=== PATIENT | male | born 1965 | race Caucasian/White ===

== ENCOUNTER 2021-05-01 18:14 | Emergency (ER) | payer OTHER, SELFPAY ==
[2021-05-01 18:53] VITALS: BP 146/74; PULSE 64; RESP 18; TEMP 36.4; O2SAT 97; BMI 26.2
[2021-05-01 20:38] VITALS: BP 166/90; PULSE 62; RESP 19; O2SAT 98
== END 2021-05-01 22:11 | disposition left against medical advice (07) ==
PROVIDERS: Emergency Provider Emergency Medicine; PCP Internal Medicine Geriatric Medicine
DX: H57.11 Ocular pain, right eye (principal)
CPT/HCPCS: 99281; 99283

== ENCOUNTER 2021-06-25 09:00 | Outpatient (REF) | payer OTHER, SELFPAY ==
--- NOTE | ~2021-06-25 | CT_ITS ---
EXAMINATION: CT CHEST SCREENING CLINICAL INFORMATION: Lung screening; 1 PPD x 43 yrs. F17.210 - Nicotine dependence, cigarettes, uncomplicated. COMPARISON: Chest radiographs 02/17/2016 TECHNIQUE: Multidetector volumetric CT imaging of the chest is performed without contrast using low dose technique. Additional 2D coronal and sagittal reformatted images and axial 3D maximum intensity projection (MIP) images are generated on the CT workstation. This CT examination was performed using dose optimization techniques as appropriate, variously including the following: *Automated exposure control *Adjustment of mA and/or kV according to patient size (this includes techniques or standardized protocols for targeted exams where dose is matched to indication/reason for exam; i.e. extremities or head) *Use of iterative reconstruction technique DLP: 57 mGy-cm FINDINGS: LUNGS: The lungs are clear and there is no airspace consolidation or groundglass opacity. No hyperinflation. The central airways are clear and there is no endobronchial lesion or bronchiectasis. Left lung has no nodule or mass. Right lung has no mass or significant nodule. Pleural-based nodule under 5 mm posterior upper zone (series 6/148) appears plaque like on sagittal and coronal reformatted images. There is a punctate pleural-based granuloma right posterior lateral apex under 4 mm (series 5/78). MEDIASTINUM: The mediastinum is normal. PLEURA: There is no pleural effusion. No pleural mass or thickening. AXILLA: No lymphadenopathy. UPPER ABDOMEN: Unremarkable OSSEOUS STRUCTURES: Unremarkable. CT/CT lung screening IMPRESSION: No significant pulmonary nodule. ASSESSMENT: Lung-RADS category 2: Benign RECOMMENDATION: Routine annual low-dose CT screening in 12 months.
== END 2021-06-25 09:01 | disposition home or self-care (01) ==
LOC: HO.CT 09:00
PROVIDERS: Visit Provider Physician Assistant Medical
DX: Z12.2 Encounter for screening for malignant neoplasm of respiratory organs (principal); F17.210 Nicotine dependence, cigarettes, uncomplicated
CPT/HCPCS: 71271

== ENCOUNTER → 2021-06-26 14:38 | Outpatient (BNVA) | payer OTHER, SELFPAY | PROVIDERS: PCP Internal Medicine Geriatric Medicine; Visit Provider Physician Assistant Medical | DX: F17.210 Nicotine dependence, cigarettes, uncomplicated (principal) | CPT/HCPCS: G0296 ==

== ENCOUNTER 2022-10-01 15:19 | Outpatient (REF) | payer OTHER, SELFPAY ==
--- NOTE | ~2022-10-01 | CT_ITS ---
EXAMINATION: CT CHEST SCREENING CLINICAL INFORMATION: Current smoker with 40 pack year history. COMPARISON: 06/25/2021 TECHNIQUE: Multidetector volumetric CT imaging of the chest is performed without contrast using low dose technique. Additional 2D coronal and sagittal reformatted images and axial 3D maximum intensity projection (MIP) images are generated on the CT workstation. This CT examination was performed using dose optimization techniques as appropriate, variously including the following: *Automated exposure control *Adjustment of mA and/or kV according to patient size (this includes techniques or standardized protocols for targeted exams where dose is matched to indication/reason for exam; i.e. extremities or head) *Use of iterative reconstruction technique DLP: 57 mGy-cm FINDINGS: LUNGS: Central airways are patent. Bronchial wall thickening is present bilaterally. No evidence of bronchiectasis. No confluent parenchymal disease is seen. Mild paraseptal and centrilobular emphysema is present. No suspicious lung nodules. No greater than 3 mm densities are identified. MEDIASTINUM: Visualized thyroid gland unremarkable. Heart normal size. No pericardial effusion. Coronary artery calcification is present. The ascending thoracic aorta measures up to 4.1 cm in diameter. No mediastinal or hilar lymphadenopathy appreciated. CORONARY ARTERY CALCIFICATION: Present. PLEURA: There is no pleural effusion. No pleural mass or thickening. AXILLA: No lymphadenopathy. UPPER ABDOMEN: Unremarkable. OSSEOUS STRUCTURES: No destructive bony lesions identified. CT/CT lung screening IMPRESSION: Mild changes of centrilobular and paraseptal emphysema. Bronchial wall thickening which may be related to respiratory bronchiolitis of smoking. No suspicious lung lesions. Prominent ascending thoracic aorta measuring up to 4.1 cm in diameter. ASSESSMENT: Lung-RADS category 1: Negative RECOMMENDATION: Routine annual low-dose CT screening in 12 months.
== END 2022-10-01 15:20 | disposition home or self-care (01) ==
LOC: HO.CT 15:19
PROVIDERS: PCP Internal Medicine Geriatric Medicine; Visit Provider Physician Assistant Medical
DX: Z12.2 Encounter for screening for malignant neoplasm of respiratory organs (principal); F17.210 Nicotine dependence, cigarettes, uncomplicated
CPT/HCPCS: 71271

== ENCOUNTER 2023-07-19 12:06 | Outpatient (REF) | payer OTHER, SELFPAY ==
--- NOTE | ~2023-07-19 | XR_ITS ---
EXAMINATION: XR ELBOW, LEFT CLINICAL INFORMATION: Lateral epicondylitis of left elbow. COMPARISON: 10/24/2014. TECHNIQUE: AP, lateral and 2 oblique views of the left elbow. FINDINGS: Alignment preserved. Bone mineralization is normal. Mild spurring along the coronoid process. Cortical deformity along the proximal diaphysis, radial aspect, of the olecranon is imaged due to overlying structures. XR/XR elbow LT min 3V IMPRESSION: 1. Mild spurring along the coronoid process. Cortical deformity along the radial aspect of the proximal diaphysis of the ulna is difficult to image due to overlying structures. Prior studies cannot be accessed at this time for interpretation. If prior studies are provided, an addendum will be dictated. Recommend follow-up imaging in 10-14 days if fracture is suspected. Direct correlation with prior images is recommended and if prior images are provided, an addendum will be dictated. In the absence of prior images, correlation with clinical exam, orthopedic consultation and possible additional imaging with CT scan recommended for further evaluation.
== END 2023-07-19 12:07 | disposition home or self-care (01) ==
LOC: HO.HHCX 12:06
PROVIDERS: Visit Provider Internal Medicine Geriatric Medicine
DX: M77.12 Lateral epicondylitis, left elbow (principal)
CPT/HCPCS: 73080

== ENCOUNTER 2023-08-19 07:40 | Outpatient (REF) | payer OTHER, SELFPAY ==
--- NOTE | ~2023-08-19 | CT_ITS ---
EXAMINATION: CT ELBOW WITHOUT CONTRAST, LEFT CLINICAL INFORMATION: Lateral epicondylitis. COMPARISON: Most recent left elbow radiographs dated 07/19/2023. TECHNIQUE: Contiguous axial CT images of the left elbow were obtained without contrast. Multiplanar reformats were provided and reviewed. This CT examination was performed using dose optimization techniques as appropriate, variously including the following: *Automated exposure control *Adjustment of mA and/or kV according to patient size (this includes techniques or standardized protocols for targeted exams where dose is matched to indication/reason for exam; i.e. extremities or head) *Use of iterative reconstruction technique. DOSE: 113 mGy-cm FINDINGS: No acute fracture or dislocation. Tiny degenerative spur along the anterior aspect of the coronoid process as seen on the prior radiographs. Along the lateral cortex of the proximal ulnar metaphysis in the region of the interosseous ligament, there is mild focal cortical irregularity with a somewhat linear lucency along the periphery of the cortex. Findings could represent mild degenerative spurring versus sequela of a remote injury versus a vascular channel. No acute fracture or concerning lytic/blastic osseous lesion in this region. No abnormal soft tissue mass or fluid collection. No significant joint effusion. Subcutaneous edema and stranding dorsal to the olecranon which could represent a soft tissue contusion versus early olecranon bursitis. No large, organized fluid collection; however, evaluation is somewhat limited without IV contrast. The visualized muscles and tendons are grossly intact; however, evaluation is limited on CT examination. CT/CT elbow LT wo IV con IMPRESSION: 1. No acute fracture or dislocation. Tiny degenerative spur along the anterior aspect of the coronoid process as seen on the prior radiographs. 2. Along the lateral cortex of the proximal ulnar metaphysis in the region of the interosseous ligament, there is mild focal cortical irregularity with a somewhat linear lucency along the periphery of the cortex. Findings could represent mild degenerative spurring versus sequela of a remote injury versus a vascular channel. No acute fracture or concerning lytic/blastic osseous lesion in this region. 3. Subcutaneous edema and stranding dorsal to the olecranon which could represent a soft tissue contusion versus early olecranon bursitis. No large, organized fluid collection; however, evaluation is somewhat limited without IV contrast.
== END 2023-08-19 07:41 | disposition home or self-care (01) ==
LOC: HO.CT 07:40
PROVIDERS: Visit Provider Internal Medicine Geriatric Medicine
DX: M77.12 Lateral epicondylitis, left elbow (principal); R93.6 Abnormal findings on diagnostic imaging of limbs
CPT/HCPCS: 73200

== ENCOUNTER 2023-10-19 15:48 | Outpatient (REF) | payer OTHER, SELFPAY ==
--- NOTE | ~2023-10-19 | CT_ITS ---
EXAMINATION: CT CHEST SCREENING CLINICAL INFORMATION: 41 years of smoking. Current smoker 1 pack per day. COMPARISON: None available. TECHNIQUE: Multidetector volumetric CT imaging of the chest is performed without contrast using low dose technique. Additional 2D coronal and sagittal reformatted images and axial 3D maximum intensity projection (MIP) images are generated on the CT workstation. This CT examination was performed using dose optimization techniques as appropriate, variously including the following: *Automated exposure control *Adjustment of mA and/or kV according to patient size (this includes techniques or standardized protocols for targeted exams where dose is matched to indication/reason for exam; i.e. extremities or head) *Use of iterative reconstruction technique DLP: 55 mGy-cm FINDINGS: LUNGS: The lungs are well-expanded and clear of acute pneumonic process. There are no pulmonary nodules, mass or consolidation. There is nonspecific ground-glass opacity seen right lower lobe anterior segment adjacent to the major fissure on axial image 33/4, on sagittal view it measures 1 cm, image 89/8. MEDIASTINUM: Thyroid lobes are symmetric and normal. The central trachea and bronchi are widely patent. Heart size and the great vessels are normal caliber. No pericardial effusion seen. Thyroid lobes are symmetric and normal. No pericardial effusion seen. CORONARY ARTERY CALCIFICATION: Mild coronary artery calcifications present. PLEURA: There is no pleural effusion. No pleural mass or thickening. AXILLA: No abnormal size axillary lymph nodes seen. The chest wall is unremarkable. UPPER ABDOMEN: Visualized liver, spleen and pancreas appear unremarkable. OSSEOUS STRUCTURES: No aggressive lytic or sclerotic process seen. CT/CT lung screening IMPRESSION: Nonspecific 1 cm ground-glass opacity right lower lobe. ASSESSMENT: Lung-RADS category 2: Benign
== END 2023-10-19 15:49 | disposition home or self-care (01) ==
LOC: HO.CT 15:48
PROVIDERS: PCP Internal Medicine Geriatric Medicine; Visit Provider Nurse Practitioner Family
DX: Z12.2 Encounter for screening for malignant neoplasm of respiratory organs (principal); F17.210 Nicotine dependence, cigarettes, uncomplicated
CPT/HCPCS: 71271

== ENCOUNTER 2023-11-22 12:44 | Outpatient (REF) | payer OTHER, SELFPAY ==
--- NOTE | ~2023-11-22 | XR_ITS ---
EXAMINATION: XR ELBOW, RIGHT CLINICAL INFORMATION: Right elbow COMPARISON: Chronic medial right elbow pain TECHNIQUE: AP, lateral, and oblique views of the right elbow. FINDINGS: BONES: Bony structures are intact. There is no focal bone destruction or periosteal reaction seen. JOINTS: Alignment of joints is normal. SOFT TISSUE: Soft tissue is normal. No radiopaque foreign body or abnormal air collection is seen. XR/XR elbow RT min 3V IMPRESSION: 1. Normal x-rays of right elbow. No fracture or dislocation or signs of osteomyelitis are found.
== END 2023-11-22 12:45 | disposition home or self-care (01) ==
LOC: HO.HHCX 12:44
PROVIDERS: Visit Provider Internal Medicine Geriatric Medicine
DX: M77.01 Medial epicondylitis, right elbow (principal)
CPT/HCPCS: 73080

== ENCOUNTER 2023-12-01 08:45 | Outpatient (REF) | payer OTHER, SELFPAY ==
[2023-12-01 11:50] LABS: Alanine Aminotransferase 25 U/L (0-40); Albumin Level 4.1 g/dL (3.5-5.0); Alkaline Phosphatase 80 U/L (39-117); Anion Gap 12 (12-20); Aspartate Amino Transferase 18 U/L (5-37); Bilirubin Total 0.4 mg/dL (0.0-1.0); Blood Urea Nitrogen 11 mg/dL (9-16); Calcium 9.4 mg/dL (8.4-10.2); Carbon Dioxide 28 mmol/L (22-29); Chloride 104 mmol/L (96-108); Cholesterol 205 mg/dL (<200); Estimated Glomerular Filt Rate > 60; Glucose Random 137 mg/dL (60-115); HDL Cholesterol 37 mg/dL (>40); LDL Cholesterol Calculated 136 mg/dL (<100); Potassium 4.2 mmol/L (3.3-5.1); Sodium 140 mmol/L (135-145); Total Protein 7.2 g/dL (6.5-8.0); Triglycerides 164 mg/dL (<150)
[2023-12-01 11:57] LABS: Creatinine Urine 226.03 mg/dL; Microalbum/Creatinine Ratio Ur 3.5 ug/mg cr (<30)
== END 2023-12-01 08:46 | disposition home or self-care (01) ==
LOC: HO.HHCL 08:45
PROVIDERS: Visit Provider Internal Medicine Geriatric Medicine
DX: E11.9 Type 2 diabetes mellitus without complications (principal)
CPT/HCPCS: 36415; 80053; 80061; 82043; 82570

== ENCOUNTER 2024-12-05 08:47 | Outpatient (REF) | payer OTHER, SELFPAY ==
--- OUTSIDE RECORDS SUMMARY | 2024-12-05 09:22 | XMS_ITS | Clinical Summary ---
Author Organization [employer] Address [address] [place] [address] [address] [place] [address] Care Team Providers Care Billet Heater Name Role Phone Name, Stanford LEE Primary Care Provider [phone] Allergies Active Allergy Reactions Criticality Noted Date Comments Statins 11/17/2022 Medications zoster vaccine-recombi nant adjuvanted (Shingrix) 50 MCG/0.5ML vaccine Inject 0.5 mL into the shoulder, thigh, or buttocks. 1 Active Blood Glucose Monitoring Suppl (FreeStyle Lite) w/Device kitIndications: Type 2 diabetes mellitus without complication, without long-term current use of insulin (CMS/HCC),Essen tial hypertension,To bacco use 1 kit in the morning. 1 kit 3 Active metFORMIN (Glucophage) 500 MG tablet Take 1 tablet (500 mg) by mouth with breakfast and with evening meal. 180 tablet 2 4 06/21/20 25 Active FreeStyle lancetsIndicati ons:Type 2 diabetes mellitus without complication, without long-term current use of insulin (CMS/HCC) 1 each by Other route Once per day. 100 each 3 4 Active FREESTYLE LITE test strip Use to test blood sugar 1 times daily 100 each 3 4 06/21/20 25 Active Active Problems Problem Noted Date Diagnosed Date Type 2 diabetes mellitus 11/17/2022 Hypercholesterolemia 11/17/2022 Essential hypertension 11/17/2022 Statin intolerance 11/17/2022 Tobacco use 11/17/2022 Resolved Problems Problem Noted Date Diagnosed Date Resolved Date Reduced libido 11/17/2022 06/01/2023 Encounters Date Type Department Care Team Description 09/28/[address] [facility] [address] [facility] [place] [address] Balbina Keys MA returning pt call 09/19/[address] [facility] [address] [place] [address] Stanford Em MD Appointment Request from Last 3 Months Immunizations Name Administration Dates Next Due Tdap 04/27/2021 Social History Tobacco Use Types Packs/Day Years Used Date Smoking Tobacco: Every Day Cigarettes Smokeless Tobacco: Never Tobacco Cessation:Ready to Q uit: Not Asked; Counseling Given: Not Answered Alcohol Use Standard Drinks/Week Comments Yes 0 (1 standard drink = 0.6 oz pur e alcohol) occassionally Alcohol Answer Date Recorded Frequency of Alcohol Consumption Not on file 02/28/2024 Average Number of Drinks Not on file 024 Frequency of Binge Drinking Not on file 02/04 Score 0 02/28/2024 Depression Answer Date Recorded Patient Health Questionnaire-9 Score 0 11/22/2023 Patient Health Questionnaire-9 Score 0 11/22/2023 Last PHQ-9: Questionnaire Data Not on file 0 11/22/2023 Housing Stability Answer Date Recorded What is your housing situation today? I have anthony penn 02/28/[address] you li ve. Do you have problems with any of the following? None of the above 02/28/2024 Food Insecurity Answer Date Recorded Within the past 12 months, y ou worried that your food would run out before you got money to buy more: Never True 02/28/2024 Within the past 12 months,th e food you bought just didn't last and you didn't have enough money to get more: Never True Transportation Answer Date Recorded In the past 12 months, has l ack of transportation kept you from medical appts, meetings, work or from getting things needed for daily living? No 02/28/2024 Utilities Answer Date Recorded In the past 12 months, has t he electric, gas, oil or water company threatened to shut off services in your home? No 02/28/2024 Depression Answer Date Recorded Patient Health Questionnaire-2 Score 0 11/22/2023 Internet Access Answer Date Recorded Internet Access Q1 No 05/07/2024 Internet Access Q2 I do not want or need it 10/2023 Sex and Gender Information Value Date Recorded Sex Assigned at Male 07/05/2022 10:38 AM EDT Legal Sex Male 10:38 AM EDT Gender Identity Male 07/05/2022 10:38 AM EDT Sexual Orientation Straight 07/05/2022 10 :38 AM EDT Last Filed Vital Signs Vital Sign Reading Time Taken Comments Blood Pressure 139/79 06/21/2024 11:31 AM EDT Pulse 50 06/21/2024 11:26 AM EDT Temperature 36.2 ??C (97.1 ??F) 02/28/2024 11:13 AM E DT Respiratory Rate 18 06/21/2024 11:26 AM EDT Oxygen Saturation 98% 06/21/2024 11:26 AM EDT Inhaled Oxygen Concentration - - Weight 83.9 kg (185 lb) 06/21/2024 11:26 AM EDT Height 180.3 cm (5' 11 ) 06/21/2024 11:26 AM EDT Body Mass Index 25.8 06/21/2024 11:26 AM EDT Plan of Treatment Upcoming Encounters Date Type Department Care Team (Late st Contact Info) Description 12/06/2024 9:45 AM EDT Office Visit [facility] [address] [place] [address] Name, MD Stanford [address] [place] [address] Health Maintenance Due Date Last Done Comments CT Colonography 1963 Colonoscopy 1963 Colorectal Cancer Screening 1963 FIT DNA/Cologuard 1963 FIT 1963 FOBT 1963 HIV Screening 1963 Sigmoidoscopy 1963 Hepatitis C Screening 1981 Pneumococcal Vaccine: 50+ Years (1 of 2 - PCV) 1982 Zoster Vaccines (1 of 2) 2013 COVID-19 Vaccine ( season) 2024 09/10/2021, 03/10/2021, 02/10/2021 Influenza Vaccine (#1) 2024 Diabetes: Hemoglobin A1C 09/21/2024 024, 02/28/2024, 11/22/2023, Additional history exists Depression Screening 11/21/2024 11/22/2023, 11/22/19 24 Diabetes: Urine Protein Screening 11/30/2024 12/01/2023, 02/16/2023 Lipid Panel 11/30/2024 12/01/2023, 02/03, 05/19/2022, Additional history exists Alcohol/Substance Use Screening 02/27/2025 02/28/2024 SDOH Screening 02/27/2025 02/28/2024 Eye Exam 06/14/2025 06/14/2023, 06/05, 06/14/2023, Additional history exists Diabetes: Foot Exam 06/21/2025 06/21/2024, 06/21/2024, 06/21/2024, Additional history exists Tobacco Screening 06/21/2025 06/21/2024 DTaP/Tdap/Td Vaccines (2 - Td or Tdap) 04/27/2031 04/27/2021 RSV Patients and Patients Aged 60 years or older (1 - 1-dose 75+ series) 2038 HIB Vaccines Aged Out No longer eligi ble based on patient's age to complete this topic HPV Vaccines Aged Out No longer eligi ble based on patient's age to complete this topic Hepatitis A Vaccines Aged Out No long er eligible based on patient's age to complete this topic Hepatitis B Vaccines Aged Out No long er eligible based on patient's age to complete this topic IPV Vaccines Aged Out No longer eligi ble based on patient's age to complete this topic Meningococcal Vaccine Aged Out No carolee henry eligible based on patient's age to complete this topic RSV under 20 months Aged Out No longe r eligible based on patient's age to complete this topic Rotavirus Vaccines Aged Out No longer eligible based on patient's age to complete this topic Procedures Procedure Name Priority Date/Time Associated Diagnosis Comments POCT GLYCATED HEMOGLOBIN, TOTAL Routine 06/21/2024 11:27 AM EDT Type 2 diabetes mellitus without complication, without long-term current use of insulin ([facility]) ALBUMIN, RANDOM URINE W/CREATININE Routine 12/01/2023 8:49 AM EDT Type 2 diabetes mellitus without complication, without long-term current use of insulin ([facility]) LIPID PANEL, STANDARD Routine 12/01/2023 8:49 AM EDT Type 2 diabetes mellitus without complication, without long-term current use of insulin ([facility]) from Last 3 Months or Most Recently Relevant to Health Maintenance Results * (ABNORMAL) POCT HGB A1C (06/21/2024 11:27 AM EDT) Hemoglobin A1C 7.1(A) 4.0 - 6.0 % QC Media Lot # [id number] Lot# Expiration Date ,996 Blood 06/21/2024 11:2 7 AM EDT us Stanford Em MD POINT OF CARE TEST ENTER/EDIT OR DERABLES Final Result * Albumin, Random Urine W/Creatinine (12/01/2023 8:49 AM EDT) Creatinine, Urine 226.03 mg/dL [facility] Microalbumin Urine 8.0 mg/L [facility] Microalbum Creatinine Ratio Ur 3.5 <30 ug/mg cr [facility] Comment:Albumin/Creatinine R atio Reference Ranges: Normal: < 30 ug/mg creatinine Microalbuminuria: 30 - 300 ug/mg creatinineClinical Albuminuria: > 300 ug/mg creatinine Urine (Urine, Random) 12/01/2023 8:49 AM EDT 12/01/2023 11:17 AM EDT us Stanford Em MD LAB URINE ORDERABLES Final Resul t [facility] [address] [place] [phone] * (ABNORMAL) Lipid Panel, Standard (12/01/2023 8:49 AM EDT) Triglycerides 164(H) <150 mg/dL [facility] Comment:Desirable Triglyceri de: less than 150 mg/dLBorderline High Triglyceride 150-199 mg/dLHigh Triglyceride: 200-499 mg/dLVery High Triglyceride: greater than or equal to 5OO mg/dL Cholesterol 205(H) <200 mg/dL [facility] Comment:Desirable Cholestero l: less than 200 mg/dLBorderline High Cholesterol: 200-239 mg/dLHigh Cholesterol: greater than 239 mg/dL LDL Cholesterol Calculated 136(H) <100 mg/dL [facility] Comment:Desirable LDL: less than 100 mg/dLNear Optimal/Above Optimal LDL: 110- 129 mg/dLBorderline High LDL: 130-159 mg/dLHigh LDL: 160-189 mg/dLVery High LDL: greater than or equal to 190 mg/dL HDL Cholesterol 37(L) >40 mg/dL [facility] Comment:Desirable HDL: great er than 40 mg/dL Note: This HDL assay may give artificially low results in patients with liver disease. Blood Venous blood specimen / Unknown 12/01/2023 8:49 AM EDT 12/01/2023 11:17 AM EDT us Stanford Name LAB BLOOD ORDERABLES Final Resul t [facility] [address] [place] [address] [phone] from Last 3 Months or Most Recently Relevant to Health Maintenance Insurance [facility] [place] [address] Care Teams Billet Heater Relationship Specialty Start Date End Date Name, MD Stanford [address] [place] [id number] PCP - General Family Medicine 03/17/21
--- OUTSIDE RECORDS SUMMARY | 2024-12-05 09:22 | XMS_ITS | Encounter Summary ---
Author Organization [employer] Address [address] [facility] 7 [place] [address] Care Team Providers Care Kiln Mechanic Name Role Phone Name, Stanford LEE Primary Care Provider [phone] Reason for Visit * Reason Onset Date Comments Appointment Request 09/19/2024 Encounter Details Date Type Department Care Team ([facility] Contact Info) Description 09/19/2024 Telephone [facility] [address] [place], [place] [phone] Name, MD Stanford [address] [place] [address] Appointment Request Social History Tobacco Use Types Packs/Day Years Used Date Smoking Tobacco: Every Day Cigarettes Smokeless Tobacco: Never Alcohol Use Standard Drinks/Week Comments Yes 0 [...] Orientation Straight 07/05/2022 10 :38 AM EDT documented as of this encounter Miscellaneous Notes * Telephone Encounter - Kaelyn Banks - 09/19/2024 8:57 AM EST Tc from pt requesting schedule diabetes f/u appt. PAR tried to schedule but there's no availability. (September recall) Contact pt [phone] documented in this encounter Plan of Treatment Upcoming Encounters Date Type Department Care Team (Late st Contact Info) Description 12/06/2024 9:45 AM EDT Office Visit [facility] [address] [place], [place] [phone] Name, MD Stanford [address] [place] [address] documented as of this encounter Visit Diagnoses Not on filedocumented in this encounter Additional Health Concerns Assessment Noted Time PHQ-9 Depression Total Score: 0 11/22/19 24 11:01 AM EDT documented as of this encounter Care Teams Kiln Mechanic Relationship Specialty Start Date End Date Name, MD Stanford [address] [place] [address] PCP - General Family Medicine 03/17/21 documented as of this encounter
[2024-12-05 14:30] LABS: Anion Gap 13 (12-20); Blood Urea Nitrogen 13 mg/dL (9-16); Calcium 9.6 mg/dL (8.4-10.2); Carbon Dioxide 26 mmol/L (22-29); Chloride 107 mmol/L (96-108); Estimated Glomerular Filt Rate > 60; Glucose Random 135 mg/dL (60-115); Potassium 4.5 mmol/L (3.3-5.1); Sodium 141 mmol/L (135-145)
[2024-12-05 14:46] LABS: Creatinine Urine 312.29 mg/dL; Microalbum/Creatinine Ratio Ur 3.8 ug/mg cr (<30)
[2024-12-05 15:00] LABS: Vitamin B12 353 pg/mL (200-900)
== END 2024-12-05 08:48 | disposition home or self-care (01) ==
LOC: HO.CHCLDS 08:47
PROVIDERS: Visit Provider Internal Medicine Geriatric Medicine
DX: E11.9 Type 2 diabetes mellitus without complications (principal); Z72.0 Tobacco use; Z28.21 Immunization not carried out because of patient refusal; Z53.20 Procedure and treatment not carried out because of patient's decision for unspecified reasons
CPT/HCPCS: 36415; 80048; 82043; 82570; 82607

== ENCOUNTER 2025-06-10 08:26 | Outpatient (REF) | payer OTHER, SELFPAY ==
--- OUTSIDE RECORDS SUMMARY | 2025-06-10 08:55 | XMS_ITS | Clinical Summary ---
Author Organization [employer] Address [address] [facility] 7t [place] [address] Care Team Providers Care Commercial Escrow Assistant Name Role Phone Name, Stanford LEE Primary Care Provider [phone] Allergies Active Allergy Reactions Criticality Noted Date Comments Statins 11/17/2022 Medications zoster vaccine-recombi nant adjuvanted (Shingrix) 50 MCG/0.5ML vaccine Inject 0.5 mL into the shoulder, thigh, or buttocks. 1 Active Blood Glucose Monitoring Suppl (FreeStyle Lite) w/Device kitIndications: Type 2 diabetes mellitus without complication, without long-term current use of insulin (HCC),Essential hypertension,To bacco use 1 kit in the morning. 1 kit 3 Active FreeStyle lancetsIndicati ons:Type 2 diabetes mellitus without complication, without long-term current use of insulin (HCC) 1 each by Other route Once per day. 100 each 3 4 Active FREESTYLE LITE test strip Use to test blood sugar 1 times daily 100 each 3 4 06/21/20 25 Active metFORMIN (Glucophage) 500 MG tablet TAKE 1 TABLET WITH BREAKFAST AND EVENING MEAL 180 tablet 3 5 Active Active Problems Problem Noted Date Diagnosed Date Type 2 diabetes mellitus 11/17/2022 Hypercholesterolemia 11/17/2022 Essential hypertension 11/17/2022 Statin intolerance 11/17/2022 Tobacco use 11/17/2022 Resolved Problems Problem Noted Date Diagnosed Date Resolved Date Reduced libido 11/17/2022 06/01/2023 Encounters Date Type Department Care Team Description 04/25/2025 10:30 AM EDT Office Visit [facility] [address] [place] [address] NameStanford MD Type 2 diabetes mellitus without complication, without long-term current use of insulin ([facility]) (Primary Dx); Tobacco use 04/25/2025 Travel 04/24/2025 Telephone [facility] [address] [place] [address] Name, MD Stanford Chart Prep 04/19/2025 Travel from Last 3 Months Immunizations Immunization Administration Dates Next Due Tdap 04/27/2021 Social [...] Date Recorded Patient Health Questionnaire-9 Score 0 12/06/2024 Patient Health Questionnaire-9 Score 0 12/06/2024 Last PHQ-9: Questionnaire Data Not on file 0 12/06/2024 Housing Stability Answer Date Recorded What is your housing situation today? I have anthony penn 04/25/[address] you li ve. Do you have problems with any of the following? None of the above 04/25/2025 Food Insecurity Answer Date Recorded Within the past 12 months, y ou worried that your food would run out before you got money to buy more: Never True 04/25/2025 Within the past 12 months,th e food you bought just didn't last and you didn't have enough money to get more: Never True Transportation Answer Date Recorded In the past 12 months, has l ack of transportation kept you from medical appts, meetings, work or from getting things needed for daily living? No 04/25/2025 Utilities Answer Date Recorded In the past 12 months, has t he electric, gas, oil or water company threatened to shut off services in your home? No 04/25/2025 Depression Answer Date Recorded Patient Health Questionnaire-2 Score 0 12/06/2024 Internet Access Answer Date Recorded Internet Access Q1 Yes 04/25/2025 Internet Access Q2 Not on file 04/25/2025 Sex and Gender Information Value Date Recorded Sex Assigned at Male 07/05/2022 10:38 AM EDT Legal Sex Male 10:38 AM EDT Gender Identity Male 07/05/2022 10:38 AM EDT Sexual Orientation Straight 07/05/2022 10 :38 AM EDT Last Filed Vital Signs Vital Sign Reading Time Taken Comments Blood Pressure 136/72 04/25/2025 10:42 AM EDT Pulse 72 04/25/2025 10:42 AM EDT Temperature 36.7 C (98.1 F) 04/25/2025 10:42 AM EDT Respiratory Rate 18 04/25/2025 10:42 AM EDT Oxygen Saturation 98% 04/25/2025 10:42 AM EDT Inhaled Oxygen Concentration - - Weight 82.2 kg (181 lb 3.2 oz) 04/25/2025 10:42 AM EDT Height 180.3 cm (5' 11 ) 04/25/2025 10:42 AM EDT Body Mass Index 25.27 04/25/2025 10:42 AM EDT Plan of Treatment Health Maintenance Due Date Last Done Comments CT Colonography 1963 Colonoscopy 1963 Colorectal Cancer Screening 1963 FIT DNA/Cologuard 1963 FIT 1963 FOBT 1963 HIV Screening 1963 Sigmoidoscopy 1963 Hepatitis C Screening 1981 Pneumococcal Vaccine: 50+ Years (1 of 2 - PCV) 1982 Zoster Vaccines (1 of 2) 2013 Lipid Panel 11/30/2024 12/01/2023, 02/03, 05/19/2022, Additional history exists COVID-19 Vaccine ( season) 2025 09/10/2021, 03/10/2021, 02/10/2021 Influenza Vaccine (#1) 2025 Eye Exam 06/14/2025 06/14/2023, 06/05, 06/14/2023, Additional history exists Diabetes: Foot Exam 06/21/2025 06/21/2024, 06/21/2024, 06/21/2024, Additional history exists Diabetes: Hemoglobin A1C 07/26/2025 025, 12/06/2024, 06/21/2024, Additional history exists Diabetes: Urine Protein Screening 12/05/2025 12/05/2024, 12/01/2023, 02/16/2023 Alcohol/Substance Use Screening 12/06/2025 12/06/2024 Depression Screening 12/06/2025 12/06/2024, 12/07/19 25 Disability Screening 04/25/2026 04/25/2025 SDOH Screening 04/25/2026 04/25/2025 Tobacco Screening 04/25/2026 04/25/2025 DTaP/Tdap/Td Vaccines (2 - Td or Tdap) [...] patient's age to complete this topic Meningococcal B Vaccine Aged Out No l onger eligible based on patient's age to complete [...] Diagnosis Comments POCT GLYCATED HEMOGLOBIN, TOTAL Routine 04/25/2025 10:43 AM EDT Type 2 diabetes mellitus without complication, without long-term current use of insulin ([facility]) POCT GLUCOSE Routine 04/25/2025 10:43 AM EDT Type 2 diabetes mellitus without complication, without long-term current use of insulin ([facility]) ALBUMIN, RANDOM URINE W/CREATININE Routine 12/05/2024 8:58 AM EDT Type 2 diabetes mellitus without complication, without long-term current use of insulin ([facility]) Tobacco use Vaccination refused by patient Colonoscopy refused LIPID PANEL, STANDARD Routine 12/01/2023 8:49 AM EDT Type 2 diabetes mellitus without complication, without long-term current use of insulin ([facility]) from Last 3 Months or Most Recently Relevant to Health Maintenance Results * (ABNORMAL) POCT HGB A1C (04/25/2025 10:43 AM EDT) Hemoglobin A1C 7.3(A) 4.0 - 5.7 % QC Media Lot # [id number] Lot# Expiration Date Blood 04/25/2025 10:4 3 AM EDT us Stanford Em MD POINT OF CARE TEST ENTER/EDIT OR DERABLES Final Result * (ABNORMAL) POCT Glucose (04/25/2025 10:43 AM EDT) Glucose Blood, POC 202(A) 60 - 200 mg/dL QC Media Lot # [id number] Lot# Expiration Date Blood Capillary blood specimen / Unknown 04/25/2025 10:43 AM EDT us Stanford Em MD POINT OF CARE TEST ENTER/EDIT OR DERABLES Final Result * Albumin, Random Urine W/Creatinine (12/05/2024 8:58 AM EDT) Creatinine, Urine 312.29 mg/dL [facility] Microalbumin Urine 12.0 mg/L [facility] Microalbum Creatinine Ratio Ur 3.8 <30 ug/mg cr [facility] Comment:Albumin/Creatinine R atio Reference Ranges: Normal: < 30 ug/mg creatinine Microalbuminuria: 30 - 300 ug/mg creatinineClinical Albuminuria: > 300 ug/mg creatinine Urine (Urine, Random) 12/05/2024 8:58 AM EDT 12/05/2024 2:05 PM EDT Stanford Em MD LAB URINE ORDERABLES Final Resul t Performing Organization Address [facility] de Phone Number [facility] [address] [place] [address] [phone] * (ABNORMAL) Lipid Panel, Standard (12/01/2023 8:49 AM EDT) Triglycerides 164(H) <150 mg/dL [facility] Comment:Desirable Triglyceri de: less than 150 mg/dLBorderline High Triglyceride 150-199 mg/dLHigh Triglyceride: 200-499 mg/dLVery High Triglyceride: greater than or equal to 5OO mg/dL Cholesterol 205(H) <200 mg/dL [facility] Comment:Desirable Cholestero l: less than 200 mg/dLBorderline High Cholesterol: 200-239 mg/dLHigh Cholesterol: greater than 239 mg/dL LDL Cholesterol Calculated 136(H) <100 mg/dL [facility] Comment:Desirable LDL: less than 100 mg/dLNear Optimal/Above Optimal LDL: 110- 129 mg/dLBorderline High LDL: 130-159 mg/dLHigh LDL: 160-189 mg/dLVery High LDL: greater than or equal to 190 mg/dL HDL Cholesterol 37(L) >40 mg/dL [facility] Comment:Desirable HDL: great er than 40 mg/dL Note: This HDL assay may give artificially low results in patients with liver disease. Blood Venous blood specimen / Unknown 12/01/2023 8:49 AM EDT 12/01/2023 11:17 AM EDT us Stanford Em MD LAB BLOOD ORDERABLES Final Resul t Performing Organization Address [facility] Co de Phone Number [facility] [address] [place] [phone] from Last 3 Months or Most Recently Relevant to Health Maintenance Insurance [employer] OPEN ACCESS Care Teams Commercial Escrow Assistant Relationship Specialty Start Date End Date Name, MD Stanford [address] [place] [phone] PCP - General Family Medicine 03/17/21
--- OUTSIDE RECORDS SUMMARY | 2025-06-10 08:55 | XMS_ITS | Encounter Summary ---
Author Organization [employer] Address [address] [facility] 7 [place] [address] Care Team Providers Care Caretaker Grounds Name Role Phone Name, Stanford LEE Primary Care Provider [phone] Reason for Visit * Reason Onset Date Comments Appointment Request 09/19/2024 Encounter Details Date Type Department Care Team ([facility] Contact Info) Description 09/19/2024 Telephone [facility] MEDICINE [address] [place], [place] [phone] Name, MD Stanford [address] [place] [address] Appointment Request Social History Tobacco Use Types [...] there's no availability. (September recall) Contact pt [phone] documented in this encounter Plan of Treatment Not on file documented as of this encounter Visit Diagnoses Not on filedocumented in this encounter Additional Health Concerns Assessment Noted Time PHQ-9 Depression Total Score: 0 11/22/19 24 11:01 AM EDT documented as of this encounter Care Teams Caretaker Grounds Relationship Specialty Start Date End Date Name, MD Stanford [address] [place] [address] PCP - General Family Medicine 03/17/21 documented as of this encounter
[2025-06-10 15:02] LABS: Alanine Aminotransferase 21 U/L (0-40); Albumin Level 4.5 g/dL (3.5-5.0); Alkaline Phosphatase 71 U/L (39-117); Anion Gap 10 (12-20); Aspartate Amino Transferase 27 U/L (5-37); Blood Urea Nitrogen 12 mg/dL (9-16); Calcium 9.2 mg/dL (8.4-10.2); Carbon Dioxide 27 mmol/L (22-29); Chloride 105 mmol/L (96-108); Cholesterol 222 mg/dL (<200); Estimated Glomerular Filt Rate > 60; HDL Cholesterol 35 mg/dL (>40); Potassium 4.0 mmol/L (3.3-5.1); Sodium 138 mmol/L (135-145); Total Protein 7.0 g/dL (6.5-8.0); Triglycerides 120 mg/dL (<150)
== END 2025-06-10 08:27 | disposition home or self-care (01) ==
LOC: HO.CHCLDS 08:26
PROVIDERS: Visit Provider Internal Medicine Geriatric Medicine
DX: E11.9 Type 2 diabetes mellitus without complications (principal)
CPT/HCPCS: 36415; 80053; 80061

== ENCOUNTER 2025-07-04 07:39 | Outpatient (REF) | payer OTHER, SELFPAY ==
--- NOTE | ~2025-07-04 | CT_ITS ---
EXAMINATION: CT LUNG SCREENING HISTORY: F17.210 - Nicotine dependence, cigarettes, uncomplicated TECHNIQUE: Low dose axial images were obtained from the sternal notch to upper abdomen without IV contrast per standard departmental protocol. Sagittal and coronal reformatted images were also obtained and reviewed. One or more of the following techniques was used for dose reduction: Automated exposure control, adjustment of the mA and/or kV according to patient size, use of iterative reconstruction technique. DLP: 60 mGy-cm COMPARISON: Comparison is made with the prior examination dated 10/19/2023. FINDINGS: Lung nodules: There is a 4 mm subpleural nodule in the right upper lobe without change (series 4, image 31). No new pulmonary nodules are identified. Emphysema: mild Coronary Calcification: mild Aortic Arch Calcification: mild Potentially Significant Incidentals : none Additional Chest Findings: There is no pleural or pericardial effusion. No mediastinal or axillary lymphadenopathy is identified. Visualized upper abdomen: The visualized portions of the liver, spleen, and adrenals have an unremarkable unenhanced appearance. CT/CT lung screening IMPRESSION: No suspicious pulmonary nodules are identified. LUNG-RADS ASSESSMENT: Lung-RADS 2: Benign MANAGEMENT: Continue annual screening with LDCT in 12 months Category S: N/A Electronically signed by: Maximino Prieto MD 07/04/2025 08:19 AM EDT
--- OUTSIDE RECORDS SUMMARY | 2025-07-04 07:43 | XMS_ITS | Clinical Summary ---
Author Organization [employer] Address [address] [facility] [address]t [place] [address] Care Team Providers Care Avionics Test Technician Name Role Phone Name, Stanford LEE Primary Care Provider [phone] Allergies Active Allergy Reactions Criticality Noted Date [...] per day. 100 each 3 4 Active metFORMIN (Glucophage) 500 MG tablet TAKE 1 TABLET WITH BREAKFAST AND EVENING MEAL 180 tablet 3 5 Active FREESTYLE LITE test strip Use to test blood sugar 1 times daily 100 each 3 4 06/21/20 Active Problems Problem Noted Date Diagnosed Date Type 2 diabetes mellitus 11/17/2022 Hypercholesterolemia 11/17/2022 Essential hypertension 11/17/2022 Statin intolerance 11/17/2022 Tobacco use 11/17/2022 Resolved Problems Problem Noted Date Diagnosed Date Resolved Date Reduced libido 11/17/2022 06/01/2023 Encounters Date Type Department Care Team Description 06/20/2025 Telephone [facility] [address] [place] [phone] Balbina Keys SUSAN nov recalls 04/25/2025 10:30 AM EDT Office Visit [facility] [place] [address] Stanford Em MD Type 2 diabetes mellitus without complication, without long-term current use of insulin (CMS/HCC) (Primary Dx); Tobacco use 04/25/2025 Travel 04/24/2025 Telephone [facility] [place] [place] [phone] Stanford Em MD Chart Prep 04/19/2025 Travel from Last 3 [...] 04/25/2025 10:42 AM EDT Plan of Treatment Upcoming Encounters Date Type Department Care Team (Late st Contact Info) Description 09/09/2025 11:00 AM EST Office Visit [facility] [address] [place] [phone] Name, MD Stanford [address] [place] [phone] Health Maintenance Due Date Last Done Comments CT Colonography 1963 Colonoscopy 1963 Colorectal Cancer Screening 1963 FIT DNA/Cologuard 1963 FIT 1963 FOBT 1963 HIV Screening 1963 Sigmoidoscopy 1963 Hepatitis C Screening 1981 Pneumococcal Vaccine: 50+ Years (1 of 2 - PCV) 1982 Zoster Vaccines (1 of 2) 2013 COVID-19 Vaccine ( season) 2025 09/10/2021, 03/10/2021, [...] Screening 04/25/2026 04/25/2025 Tobacco Screening 04/25/2026 04/25/2025 Lipid Panel 06/10/2026 06/10/2025, 11/04, 02/16/2023, Additional history exists DTaP/Tdap/Td Vaccines (2 - Td or Tdap) [...] Procedure Name Priority Date/Time Associated Diagnosis Comments LIPID PANEL, STANDARD Routine 06/10/2025 8:27 AM EDT Type 2 diabetes mellitus without complication, without long-term current use of insulin ([facility]) COMPREHENSIVE METABOLIC PANEL Routine 06/10/2025 8:27 AM EDT Type 2 diabetes mellitus without complication, without long-term current use of insulin ([facility]) POCT GLYCATED HEMOGLOBIN, TOTAL Routine 04/25/2025 10:43 AM EDT Type 2 diabetes mellitus without complication, without long-term current use of insulin ([facility]) POCT GLUCOSE Routine 04/25/2025 10:43 AM EDT Type 2 diabetes mellitus without complication, without long-term current use of insulin (CMS/[facility]) ALBUMIN, RANDOM URINE W/CREATININE Routine 12/05/2024 8:58 AM EDT Type 2 diabetes mellitus without complication, without long-term current use of insulin (CMS/[facility]) Tobacco use Vaccination refused by patient Colonoscopy refused from Last 3 Months or Most Recently Relevant to Health Maintenance Results * (ABNORMAL) Lipid Panel, Standard (06/10/2025 8:27 AM EDT) Triglycerides 120 <150 mg/dL [facility] Comment:Desirable Triglyceri de: less than 150 mg/dLBorderline High Triglyceride 150-199 mg/dLHigh Triglyceride: 200-499 mg/dLVery High Triglyceride: greater than or equal to 5OO mg/dL Cholesterol 222(H) <200 mg/dL [facility] Comment:Desirable Cholestero l: less than 200 mg/dLBorderline High Cholesterol: 200-239 mg/dLHigh Cholesterol: greater than 239 mg/dL LDL Cholesterol Calculated 163(H) <100 mg/dL [facility] Comment:Desirable LDL: less than 100 mg/dLNear Optimal/Above Optimal LDL: 110- 129 mg/dLBorderline High LDL: 130-159 mg/dLHigh LDL: 160-189 mg/dLVery High LDL: greater than or equal to 190 mg/dL HDL Cholesterol 35(L) >40 mg/dL [facility] Comment:Desirable HDL: great er than 40 mg/dL Note: This HDL assay may give artificially low results in patients with liver disease. Blood Venous blood specimen / Unknown 06/10/2025 8:27 AM EDT 06/10/2025 2:37 PM EDT us Stanford Name MD LAB BLOOD ORDERABLES Final Resul t [facility] [address] [place] [address] [phone] * (ABNORMAL) Comprehensive Metabolic Panel (06/10/2025 8:27 AM EDT) Sodium 138 135 - 145 mmol/L [facility] Potassium 4.0 3.3 - 5.1 mmol/L [facility] Chloride 105 96 - 108 mmol/L [facility] Carbon Dioxide 27 22 - 29 mmol/L [facility] Anion Gap 10(L) 12 - 20 [facility] Urea Nitrogen (BUN) 12 9 - 16 mg/dL [facility] Creatinine, Serum 0.86 0.5 - 1.4 mg/dL [facility] Estimated Glomerular Filt Rate >60 [facility] Comment:Chronic Kidney Disea se: Estimated GFR < 60 mL/min/1.42g2Awzyla Kidney Disease: Estimated GFR < 15 mL/min/1.73m2 Glucose 134(H) 60 - 115 mg/dL [facility] Calcium 9.2 8.4 - 10.2 mg/dL [facility] Bilirubin, Total 0.4 0.0 - 1.0 mg/dL [facility] Aspartate Amino Transferase 27 5 - 37 U/L [facility] Alanine Aminotransferase 21 0 - 40 U/L [facility] Total Protein 7.0 6.5 - 8.0 g/dL [facility] Albumin Level 4.5 3.5 - 5.0 g/dL [facility] Alkaline Phosphatase 71 39 - 117 U/L [facility] Blood Venous blood specimen / Unknown 06/10/2025 8:27 AM EDT 06/10/2025 2:37 PM EDT us Stanford Em MD LAB BLOOD ORDERABLES Final Resul t [facility] [address] [place] [phone] * (ABNORMAL) POCT HGB A1C (04/25/2025 10:43 AM EDT) Hemoglobin A1C 7.3(A) 4.0 - 5.7 % QC Media Lot # [id number] Lot# Expiration Date 72 Blood 04/25/2025 10:4 3 AM EDT us [...] 8:58 AM EDT) Creatinine, Urine 312.29 mg/dL [facility] Microalbumin Urine 12.0 mg/L [facility] Microalbum Creatinine Ratio Ur 3.8 <30 ug/mg cr [facility] Comment:Albumin/Creatinine R atio Reference Ranges: Normal: < 30 ug/mg creatinine Microalbuminuria: 30 - 300 ug/mg creatinineClinical Albuminuria: > 300 ug/mg creatinine Urine (Urine, Random) 12/05/2024 8:58 AM EDT 12/05/2024 2:05 PM EDT Stanford Em MD LAB URINE ORDERABLES Final Resul t [facility] [address] [place] [address] [phone] from Last 3 Months or Most Recently Relevant to Health Maintenance Insurance [facility] OPEN ACCESS Care Teams Avionics Test Technician Relationship Specialty Start Date End Date Name, MD Stanford [address] [place] [phone] PCP - General Family Medicine 03/17/21
--- OUTSIDE RECORDS SUMMARY | 2025-07-04 07:43 | XMS_ITS | Encounter Summary ---
Author Organization [employer] Address [address] [facility] 7 [place] [address] Care Team Providers Care Video Game Creator Name Role Phone Name, Stanford LEE Primary Care Provider [phone] Reason for Visit * Reason Onset Date Comments Appointment Request 09/19/2024 Encounter Details Date Type Department Care Team ([facility] Contact Info) Description 09/19/2024 Telephone [facility] MEDICINE [address] [place], [place] [phone] Name, MD Stanford [address] [place] [address] Appointment Request Social History Tobacco Use Types [...] there's no availability. (September recall) Contact pt [phone] documented in this encounter Plan of Treatment Upcoming Encounters Date Type Department Care Team (Late st Contact Info) Description 09/09/2025 11:00 AM EST Office Visit [facility] MEDICINE [address] [place], [place] [phone] Name, MD Stanford [address] [place] [address] documented as of this encounter Visit Diagnoses Not on filedocumented in this encounter Additional Health Concerns Assessment Noted Time PHQ-9 Depression Total Score: 0 11/22/19 24 11:01 AM EDT documented as of this encounter Care Teams Video Game Creator Relationship Specialty Start Date End Date Name, MD Stanford [address] [place] [address] PCP - General Family Medicine 03/17/21 documented as of this encounter
== END 2025-07-04 07:40 | disposition home or self-care (01) ==
LOC: HO.CT 07:39
PROVIDERS: PCP Internal Medicine Geriatric Medicine; Visit Provider Physician Assistant Medical
DX: Z12.2 Encounter for screening for malignant neoplasm of respiratory organs (principal); F17.210 Nicotine dependence, cigarettes, uncomplicated
CPT/HCPCS: 71271

== ENCOUNTER → 2025-07-04 07:39 | Outpatient (BNV) | payer OTHER, SELFPAY | PROVIDERS: PCP Internal Medicine Geriatric Medicine; Visit Provider Radiology Diagnostic Radiology | DX: F17.210 Nicotine dependence, cigarettes, uncomplicated (principal) | CPT/HCPCS: 71271 ==